=== PATIENT | female | born 1940 | race Hispanic/Latino ===

== ENCOUNTER 2017-10-31 12:22 | Outpatient (CLI) | payer MEDICARE | END 2017-10-31 12:23 | disposition home or self-care (01) | LOC: BICRAD 12:22 | PROVIDERS: ATTEND Specialist | DX: R91.1 Solitary pulmonary nodule (principal); R91.8 Other nonspecific abnormal finding of lung field; R59.0 Localized enlarged lymph nodes; I25.10 Atherosclerotic heart disease of native coronary artery without angina pectoris; N28.1 Cyst of kidney, acquired | CPT/HCPCS: 71250 ==

== ENCOUNTER 2018-09-17 10:09 | Outpatient (CLI) | payer MEDICARE, OTHER ==
--- NOTE | 2018-09-17 12:30 | RAD ---
CHEST PA AND LATERAL: History: 77-year-old female with history of cough for six weeks. 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 FINDINGS: Minimal bilateral hyperinflation. There is some increased linear and interstitial markings particular ly in the mid and upper lung zones which appear stable. No confluent pneumonia, overt edema, or pleur al effusion. Atherosclerosis of the aorta with ectasia. IMPRESSION: Mild stable chronic changes. No significant acute process. No evidence of pneumonia. Atherosclerosis of the aorta. POS: [facility]
== END 2018-09-17 10:10 | disposition home or self-care (01) ==
LOC: BICRAD 10:09
DX: R05 Cough (principal); I70.0 Atherosclerosis of aorta
CPT/HCPCS: 71046

== ENCOUNTER 2022-05-08 20:57 | Emergency (ER) | payer MEDICARE, OTHER ==
[2022-05-08 21:25] LABS: Bilirubin 2+ (Negative); Blood, Urine 2+ (Negative); Clarity Turbid (Clear); Glucose, Urine (Dipstick) Normal (Negative); Ketone, Urine Negative (Negative); Leukocyte 500 Leu/uL (Negative); Nitrite 2+ (Negative); Protein, Urine (Dipstick) 30 mg/dL (Neg-Trace); Specific Gravity, Urine 1.015 (1.002-1.036); Squamous Epithelial None Seen HPF (0-3); Urobilinogen 6 mg/dL (Less than 2)
[2022-05-08 21:29] LABS: Bacteria/HPF Rare-Few HPF (None Seen); WBC/HPF 21-50 HPF (0-3)
== END 2022-05-08 22:30 | disposition home or self-care (01) ==
LOC: ERS 20:57
DX: N39.0 Urinary tract infection, site not specified (principal); I10 Essential (primary) hypertension; E78.5 Hyperlipidemia, unspecified; Z79.899 Other long term (current) drug therapy; Z79.82 Long term (current) use of aspirin
CPT/HCPCS: 81003; 81015; 87086; 99283

== ENCOUNTER 2022-11-11 15:09 | Inpatient (IN) | payer MEDICARE, OTHER ==
[~2022-11-11 15:09] MED LIST: Iopamidol 370 76% 100 ML VIAL ONE
[2022-11-11] MEDS ORDERED: Rocuronium Bromide 10 MG/ML (10ML VIAL) ONE (15:16)
[2022-11-11] MEDS ORDERED: EPINEPHrine 1 MG/10 ML Abboject SYRINGE ONE ×3 (15:16→17:22)
[2022-11-11] MEDS ORDERED: Heparin 10,000 UNITS/ 10 ML VIAL ONE (15:16)
[2022-11-11] MEDS ORDERED: Midazolam HCl 2 mg/2 ml Vial ONE (15:23)
[2022-11-11 15:29] LABS: #Eosinphils 0.3 thou/uL (0.0-0.7); #Lymphocytes 3.5 thou/uL (1.20-3.40); #Monocytes 0.9 thou/uL (0.11-0.59); #Neutrophils 4.9 thou/uL (1.40-6.50); %Basophils 0.5 % (0.0-1.0); %Eosinophils 3.1 % (0.0-10.0); %Lymphocytes 36.8 % (21.0-51.0); %Neutrophils 50.6 % (42.0-75.0); Hemoglobin 13.3 g/dL (12.0-16.0); Mean Corpuscular HGB CONC 33.4 g/dL (32.0-36.0); Mean Corpuscular Hemoglobin 31.5 pg (27.0-31.0); Mean Corpuscular Volume 94.2 fl (78.0-98.0); Mean Platelet Volume 9.6 fL (7.4-10.4); Platelet Count 156 10x3/uL (130-400); RBC Distribution Width 12.5 % (11.5-14.5); Red Blood Cell (RBC) Count 4.21 mill/uL (4.20-5.40); White Blood Cell (WBC) Count 9.6 10x3/uL (4.8-10.8)
[2022-11-11 15:40] LABS: PTT 28.8 sec (22.9-36.1); Prothrombin Time 13.7 sec (12.0-14.7)
[2022-11-11 15:43] LABS: ALT (SGPT) 18 U/L (8-55); AST (SGOT) 23 U/L (5-34); Albumin 3.1 g/dL (3.4-4.8); Alkaline Phosphatase 48 U/L (40-110); Anion Gap 14 mmol/L (10-20); BUN (Urea Nitrogen) 18 mg/dL (9.8-20.1); Bilirubin, Total 0.5 mg/dL (0.2-1.2); Calc. Creatinine Clearance 0 mL/min (70-130); Calcium 8.1 mg/dL (7.8-10.44); Carbon Dioxide 20 mmol/L (23-31); Chloride 110 mmol/L (98-107); Estimated GFR 69; Globulin 2.1 g/dL (2.4-3.5); Glucose 114 mg/dL (83-110); Potassium 3.5 mmol/L (3.5-5.1); Protein, Total 5.2 g/dL (5.8-8.1); Sodium 140 mmol/L (136-145)
[2022-11-11 16:06] LABS: CKMB 0.6 ng/mL (0-6.6)
== END 2022-11-11 18:38 | disposition expired | DRG 246 ==
LOC: ERS 15:09 → CCL 15:35 → CCU 17:12
PROVIDERS: ADMIT Internal Medicine Cardiovascular Disease; ATTEND Internal Medicine Cardiovascular Disease
PROC: 027036Z Dilation of Coronary Artery, One Artery with Three Drug-eluting Intraluminal Devices, Percutaneous Approach (ICD-10-PCS; principal; 2022-11-11)
PROC: 0BH17EZ Insertion of Endotracheal Airway into Trachea, Via Natural or Artificial Opening (ICD-10-PCS; 2022-11-11)
PROC: 3E033XZ Introduction of Vasopressor into Peripheral Vein, Percutaneous Approach (ICD-10-PCS; 2022-11-11)
PROC: 5A1935Z Respiratory Ventilation, Less than 24 Consecutive Hours (ICD-10-PCS; 2022-11-11)
PROC: 4A023N7 Measurement of Cardiac Sampling and Pressure, Left Heart, Percutaneous Approach (ICD-10-PCS; 2022-11-11)
PROC: B2111ZZ Fluoroscopy of Multiple Coronary Arteries using Low Osmolar Contrast (ICD-10-PCS; 2022-11-11)
PROC: 5A12012 Performance of Cardiac Output, Single, Manual (ICD-10-PCS; 2022-11-11)
PROC: 0DH67UZ Insertion of Feeding Device into Stomach, Via Natural or Artificial Opening (ICD-10-PCS; 2022-11-11)
PROC: 3E0G76Z Introduction of Nutritional Substance into Upper GI, Via Natural or Artificial Opening (ICD-10-PCS; 2022-11-11)
DX: I21.19 ST elevation (STEMI) myocardial infarction involving other coronary artery of inferior wall (principal); J96.90 Respiratory failure, unspecified, unspecified whether with hypoxia or hypercapnia; J81.1 Chronic pulmonary edema; I10 Essential (primary) hypertension; E11.9 Type 2 diabetes mellitus without complications; R00.1 Bradycardia, unspecified; I95.9 Hypotension, unspecified; E78.5 Hyperlipidemia, unspecified; I48.91 Unspecified atrial fibrillation; I49.01 Ventricular fibrillation; R57.0 Cardiogenic shock; I46.2 Cardiac arrest due to underlying cardiac condition
CPT/HCPCS: 31500; 36556; 51702; 71045; 80053; 82553; 84484; 85025; 85347; 85610; 85730; 92941; 92950; 92960; 93005; 93454; 94002; 96374; 96375; C1725; C1769; C1874; C1887; C9606; J0171; J1644; J2250; Q9967